=== PATIENT | male | born 1980 | race Caucasian/White ===

== ENCOUNTER 2019-11-04 09:48 | Emergency (ER) | payer OTHER ==
[~2019-11-04] VITALS: Ht 180.3 cm; Wt 81.7 kg
[2019-11-04 10:23] VITALS: BP 149/105
[2019-11-04] MEDS ORDERED: ATIVAN1 M1 PO (10:31)
== END 2019-11-04 10:37 | disposition home or self-care (01) ==
LOC: M.ERS 09:48
DX: F41.9 Anxiety disorder, unspecified (principal); F32.9 Major depressive disorder, single episode, unspecified; R11.10 Vomiting, unspecified; F17.210 Nicotine dependence, cigarettes, uncomplicated